=== PATIENT | female | born 1995 | race Caucasian/White ===

== ENCOUNTER → 2018-01-08 | Outpatient (CLI) | payer OTHER ==
[~2018-01-08] MED LIST: METFORMIN HCL500 MG PO; PHENERGAN 25 MG25 M1 PO
== END ==
LOC: ULTRA 09:25
DX: E28.2 Polycystic ovarian syndrome (principal)

== ENCOUNTER 2018-01-21 21:22 | Emergency (ER) | payer OTHER ==
[~2018-01-21] VITALS: Ht 165.1 cm; Wt 81.7 kg
[2018-01-21 21:49] LABS: URINE BILIRUBIN NEGATIVE (Negative); URINE BLOOD NEGATIVE (Negative); URINE CLARITY CLEAR; URINE COLOR YELLOW; URINE GLUCOSE-RANDOM* NEGATIVE (Negative); URINE KETONES NEGATIVE (Negative); URINE LEUKOCYTES NEGATIVE (Negative); URINE NITRITE NEGATIVE (Negative); URINE PROTEIN (DIPSTICK) NEGATIVE (Negative); URINE SPECIFIC GRAVITY >= 1.030 (1.005-1.035); URINE UROBILINOGEN 0.2 E.U./dl (0.2-1.0)
[2018-01-21 22:41] LABS: ABSOLUTE NEUTROPHILS 4.5 thou/uL (1.4-8.2); BASOPHILS 0.5 % (0.0-2.0); EOSINOPHILS 4.1 % (0.0-3.0); HEMATOCRIT 35.6 % (37.0-47.0); HEMOGLOBIN 12.1 gm/dL (12.0-15.0); LYMPHOCYTES 27.5 % (24.0-44.0); MCH 28.8 pg (26.0-34.0); MCV 84.6 fL (80.0-100.0); MONOCYTES 7.3 % (1.0-8.0); PLATELET COUNT 320 thou/uL (150-400); POLYS 60.6 % (36.0-66.0); RBC 4.21 mil/uL (4.20-5.00); WBC 7.4 thou/uL (4.0-11.0)
[2018-01-21 22:48] LABS: CALCIUM 9.2 mg/dL (8.5-10.1); CREATININE 0.7 mg/dL (0.6-1.0); POTASSIUM 3.4 mmol/L (3.5-5.1)
[2018-01-21] MEDS ORDERED: METFORMIN HCL500 MG PO (22:52)
[2018-01-21 22:54] LABS: ALBUMIN 3.8 g/dL (3.4-5.0); DIRECT BILIRUBIN 0.1 mg/dL (<0.1-0.3); TOTAL BILIRUBIN 0.5 mg/dL (<0.1-1.0); TOTAL PROTEIN 7.2 g/dL (6.4-8.2)
== END 2018-01-21 23:54 | disposition home or self-care (01) ==
LOC: ER 21:22
PROVIDERS: Emergency Medicine
DX: R51 Headache (principal); R11.2 Nausea with vomiting, unspecified

== ENCOUNTER 2018-08-19 22:48 | Emergency (ER) | payer OTHER ==
[~2018-08-19] VITALS: Ht 162.6 cm; Wt 84.8 kg
[~2018-08-19 22:48] MED LIST changes: -PHENERGAN 25 MG25 M1 PO
[2018-08-19 23:55] LABS: ABSOLUTE NEUTROPHILS 6.3 thou/uL (1.4-8.2); BASOPHILS 0.4 % (0.0-2.0); EOSINOPHILS 1.7 % (0.0-3.0); HEMATOCRIT 36.3 % (37.0-47.0); HEMOGLOBIN 12.5 gm/dL (12.0-15.0); LYMPHOCYTES 23.5 % (24.0-44.0); MCH 29.4 pg (26.0-34.0); MCHC 34.4 g/dL (28.0-37.0); MCV 85.3 fL (80.0-100.0); PLATELET COUNT 321 thou/uL (150-400); POLYS 67.4 % (36.0-66.0); RBC 4.26 mil/uL (4.20-5.00); RDW 14.3 % (10.5-14.5); WBC 9.3 thou/uL (4.0-11.0)
[2018-08-20] LABS: CALCIUM 9.4 mg/dL (8.5-10.1); CREATININE 0.9 mg/dL (0.6-1.0); POTASSIUM 3.7 mmol/L (3.5-5.1)
[2018-08-20 00:06] LABS: ALBUMIN 4.1 g/dL (3.4-5.0); DIRECT BILIRUBIN 0.2 mg/dL (<0.1-0.3); TOTAL BILIRUBIN 1.3 mg/dL (<0.1-1.0)
[2018-08-20] MEDS ORDERED: PHENERGAN 25 MG25 M1 PO (00:47)
[2018-08-20 01:56] VITALS: BP 105/61
== END 2018-08-20 01:56 | disposition home or self-care (01) ==
LOC: ER 22:48
PROVIDERS: Emergency Medicine
DX: G43.909 Migraine, unspecified, not intractable, without status migrainosus (principal); R19.7 Diarrhea, unspecified; R11.2 Nausea with vomiting, unspecified

== ENCOUNTER 2018-10-19 15:56 | Emergency (ER) | payer OTHER ==
[~2018-10-19] VITALS: Ht 162.6 cm; Wt 78.5 kg
--- NOTE | ~2018-10-19 | EKG ---
[address] [address] ELECTROCARDIOGRAM REPORT Name: RAOUL TURPIN Room #: [facility]P [id number] Admission: 10/19/18 Attend Phys: Discharge: 10/19/18 Date of : [birth year] Report #: [id number] THIS REPORT FOR: //name// [facility] ED Test Date: 2018-10-19 Test Time: 16:10:52 Pat Name: RAOUL TURPIN Department: Room: Gender: F Internal Audit Consultant: PABLO : 1995 Requested By: Devante Goodrich Order Number: [id number] MD: Roger Mcdonough Measurements Intervals [place] Rate: 71 P: 59 IA: 136 QRS: 79 QRSD: 80 T: 53 QT: 378 QTc: 411 Interpretive Statements Sinus rhythm Atrial premature complexes Baseline wander in lead(s) V6 No previous ECG available for comparison Electronically Signed On 10-20-2018 8:46:11 [employer] ASSIST[employer] by Roger Mcdonough [email or web address] <ELECTRONICALLY SIGNED> By: Roger Mcdonough MD, [facility] 10/20/18 0846 [id number] 1610 Roger Mcdonough MD, FACC /EPI
[~2018-10-19 15:56] MED LIST changes: +PHENERGAN 25 MG25 M1 PO
[2018-10-19] MEDS ORDERED: ATIVAN0.5 MG PO (16:46)
[2018-10-19 17:17] VITALS: BP 103/62
[2018-10-19] MEDS ORDERED: NAPROXEN375 MG PO (17:24)
[2018-10-19] MEDS ORDERED: NORFLEX100 MG PO (17:24)
== END 2018-10-19 17:52 | disposition home or self-care (01) ==
LOC: ER 15:56
DX: F41.0 Panic disorder [episodic paroxysmal anxiety] (principal); M43.6 Torticollis; R07.89 Other chest pain

== ENCOUNTER 2018-10-21 14:11 | Emergency (ER) | payer OTHER ==
[~2018-10-21] VITALS: Ht 162.6 cm; Wt 74.4 kg
[~2018-10-21 14:11] MED LIST changes: +ATIVAN0.5 MG PO; +NAPROXEN375 MG PO; +NORFLEX100 MG PO
[2018-10-21 15:19] LABS: URINE BLOOD 3+ (Negative); URINE CLARITY CLEAR; URINE COLOR YELLOW; URINE GLUCOSE-RANDOM* NEGATIVE (Negative); URINE KETONES 2+ (Negative); URINE LEUKOCYTES-REFLEX NEGATIVE (Negative); URINE NITRITE-REFLEX NEGATIVE (Negative); URINE PROTEIN (DIPSTICK) NEGATIVE (Negative)
[2018-10-21 15:22] LABS: ICTOTEST (BILI CONFIRMATORY) Negative (Negative); URINE BILIRUBIN NEGATIVE (Negative)
[2018-10-21 15:31] LABS: AMORPHOUS URATES Moderate /LPF (None Seen); BACTERIA-REFLEX None Seen /HPF (None Seen); CASTS None Seen /LPF (None Seen); SQUAMOUS 4-10 Moderate /LPF (0-3); URINE RBC 0-2 Rare /HPF (0-2); URINE WBC-REFLEX 0-5 Rare /HPF (0-5)
[2018-10-21] MEDS ORDERED: MOBIC15 MG PO (15:35)
[2018-10-21] MEDS ORDERED: MEDROLDOSEPACK PO (15:35)
[2018-10-21 15:46] VITALS: BP 120/86
== END 2018-10-21 15:48 | disposition home or self-care (01) ==
LOC: ER 14:11
PROVIDERS: Physician Assistant
DX: M43.6 Torticollis (principal); M79.622 Pain in left upper arm; E28.2 Polycystic ovarian syndrome; F41.9 Anxiety disorder, unspecified; Z91.018 Allergy to other foods

== ENCOUNTER 2020-03-09 18:00 | Emergency (ER) | payer BC ==
[~2020-03-09] VITALS: Ht 167.6 cm; Wt 68.0 kg
[~2020-03-09 18:00] MED LIST changes: +MEDROLDOSEPACK PO; +MOBIC15 MG PO
[2020-03-09 18:45] VITALS: BP 136/84
[2020-03-09] MEDS ORDERED: IBUPROFEN 600600 M1 PO (19:03)
[2020-03-09] MEDS ORDERED: AFRIN15 M1 NASAL (19:03)
[2020-03-09] MEDS ORDERED: CLARITIN-D 121 EAC1 PO (19:03)
== END 2020-03-09 19:20 | disposition home or self-care (01) ==
LOC: ER 18:00
DX: H92.03 Otalgia, bilateral (principal); R09.81 Nasal congestion; R05 Cough; Z91.018 Allergy to other foods